=== PATIENT | male | born 1990 | race Caucasian/White ===

== ENCOUNTER 2021-11-15 08:44 | Inpatient (IN) | payer OTHER ==
[~2021-11-15] VITALS: Ht 175.3 cm; Wt 99.3 kg
[2021-11-15 09:51] LABS: HEMOGLOBIN 11.5 gm/dl (14.0-17.5); RED BLOOD COUNT 3.86 M/UL (4.20-5.50); WHITE BLOOD COUNT 4.2 K/UL (4.5-11.0)
[2021-11-15 10:24] LABS: BUN/CREATININE RATIO 20 (0-10)
[2021-11-16 10:06] LABS: HEMOGLOBIN 11.8 gm/dl (14.0-17.5); RED BLOOD COUNT 4.08 M/UL (4.20-5.50); WHITE BLOOD COUNT 3.8 K/UL (4.5-11.0)
[2021-11-16 10:28] LABS: BUN/CREATININE RATIO 19 (0-10)
[2021-11-16] MEDS ORDERED: DEPAKOTE ER250 MG PO (11:35)
[2021-11-16] MEDS ORDERED: ZAROXOLYN/DIULO5 MG PO (11:36)
[2021-11-16] MEDS ORDERED: VITAMIN D3125 MCG PO (11:36)
[2021-11-16] MEDS ORDERED: BUPRENORPHIN-N1 EACH SL (11:39)
--- NOTE | 2021-11-16 18:36 | NUR ---
PATIENT COMPLAINING ABOUT NEURONTIN 300 NOT BEING INCREASED TO 60 TID. SPOKE TO PATIENT AND HE CALLED [facility] AND SOME LADY ON THE PHONE INTRODUCED HERSELF A NURSE AT [facility]. SHE INFORMED ME THE PATIENT WAS STILL ON NERONTIN 600 AND IT HAD NOT BEEN STOPPED. SO I TOLD HIM I COULD NOT TALK TO THEM THAT I WOULD PASS THE PHONE NUMBER ON TO PHARMACY AND WOULD LET HIM KNOW SOON I KNEW SOMETHING.
[2021-11-16] MEDS ORDERED: ZOLOFT50 MG PO (18:40)
[2021-11-16] MEDS ORDERED: COLACE100 MG PO (18:40)
[2021-11-16] MEDS ORDERED: GABAPENTIN600 MG PO (18:40)
[2021-11-16] MEDS ORDERED: ASPIRIN EC81 MG PO (18:40)
[2021-11-16] MEDS ORDERED: POTASSIUM CHLO20 ME1 PO (18:41)
[2021-11-17 06:37] LABS: HEMOGLOBIN 12.5 gm/dl (14.0-17.5); RED BLOOD COUNT 4.23 M/UL (4.20-5.50); WHITE BLOOD COUNT 4.4 K/UL (4.5-11.0)
[2021-11-17 07:12] LABS: HIV AB/P24 AG SCREEN Non Reactive (Non Reactive)
[2021-11-17 08:37] LABS: BUN/CREATININE RATIO 15 (0-10)
[2021-11-18 04:49] LABS: HEMOGLOBIN 11.6 gm/dl (14.0-17.5); RED BLOOD COUNT 3.96 M/UL (4.20-5.50); WHITE BLOOD COUNT 3.6 K/UL (4.5-11.0)
[2021-11-18 07:47] LABS: BUN/CREATININE RATIO 15 (0-10)
[2021-11-19] MEDS ORDERED: LASIX40 MG PO ×2 (13:13→13:15)
[2021-11-19 23:11] LABS: HBSAG SCREEN Negative (Negative); HCV AB >11.0 (0.0-0.9); HCV LOG10 6.481 (.); HEP A AB, IGM Negative (Negative); HEP B CORE AB, IGM Negative (Negative); HEPATITIS C QUANTITATION 3030000 IU/mL (.)
== END 2021-11-19 13:56 | disposition home or self-care (01) | DRG 293 ==
LOC: ER1 08:44 → CDU 16:18 → M/S 16:18
PROVIDERS: Emergency Medicine; Physician Assistant; ADMIT Internal Medicine
PROC: B24BZZZ Ultrasonography of Heart with Aorta (ICD-10-PCS; principal; 2021-11-16)
DX: I50.33 Acute on chronic diastolic (congestive) heart failure (principal); B19.20 Unspecified viral hepatitis C without hepatic coma; I08.1 Rheumatic disorders of both mitral and tricuspid valves; Z79.01 Long term (current) use of anticoagulants; Z79.82 Long term (current) use of aspirin; Z87.891 Personal history of nicotine dependence; Z86.711 Personal history of pulmonary embolism
CPT/HCPCS: ECHO; 36415; 71045; 80048; 80053; 80074; 80202; 80307; 81001; 82550; 82553; 83605; 83735; 83880; 84484; 85025; 85027; 87040; 87389; 93005; 93306; 96374; 99285; J1650; J1940; J2543; J3370; J7050; J7070; Q9967